=== PATIENT | male | born 1990 | race Caucasian/White ===

== ENCOUNTER → 2016-12-06 | Outpatient (REF) ==
--- NOTE | 2016-12-07 03:34 | REP ---
Clinical: Pain . Technique: Internal rotation, external rotation, and Y view. Findings: No acute fracture or dislocation. The acromioclavicular and glenohumeral joints are intact. No periarticular calcifications or degenerative changes are appreciated. Sub acromial space is normal. Surrounding soft tissues are unremarkable. Impression: Normal left shoulder radiographs. Signed by Darryl Gonzalez MD 12/07/2016 03:24 A
--- NOTE | 2016-12-07 03:40 | REP ---
Clinical: Pain. Technique: Neutral and frog lateral views of the left hip. Findings: No acute fracture dislocation. Joint spaces are intact and relatively normal. No overt arthritic degenerative changes are appreciated. No periarticular calcifications are identified. Surrounding soft tissues normal. Impression: Relatively normal left hip radiographs. Signed by Darryl Gonzalez MD 12/07/2016 03:31 A
== END ==
LOC: M SMT 13:10
PROVIDERS: ATTEND Internal Medicine
DX: Z02.71 Encounter for disability determination (principal)

== ENCOUNTER → 2022-01-20 | Outpatient (REF) | LOC: M RAD 10:00 | DX: M54.9 Dorsalgia, unspecified (principal); M25.512 Pain in left shoulder; M25.562 Pain in left knee ==

== ENCOUNTER → 2022-05-31 | Outpatient (REF) | LOC: M PLALAB 12:20 | PROVIDERS: ATTEND Internal Medicine | DX: R52 Pain, unspecified (principal) ==

== ENCOUNTER → 2022-09-21 | Outpatient (CLI) | payer OTHER | LOC: M PLAIMG 12:17 | PROVIDERS: ATTEND Family Medicine | DX: M47.817 Spondylosis without myelopathy or radiculopathy, lumbosacral region (principal) ==